=== PATIENT | male | born 1950 | race Caucasian/White ===

== ENCOUNTER 2020-08-25 17:28 | Emergency (ER) | payer MEDICARE, OTHER ==
[2020-08-25 18:40] LABS: HEMOGLOBIN 13.6 gm/dl (14.0-17.5); RED BLOOD COUNT 4.09 M/UL (4.20-5.50); WHITE BLOOD COUNT 8.1 K/UL (4.5-11.0)
[2020-08-25 19:04] LABS: BUN/CREATININE RATIO 22 (0-10)
== END 2020-08-25 20:03 | disposition home or self-care (01) ==
LOC: ER1 17:28
PROVIDERS: Emergency Medicine
DX: M54.6 Pain in thoracic spine (principal); M79.601 Pain in right arm; M25.78 Osteophyte, vertebrae
CPT/HCPCS: 71045; 72125; 72128; 80053; 82550; 82553; 83690; 83874; 84484; 85025; 85379; 93005; 99284